=== PATIENT | female | born 1960 | race Caucasian/White ===

== ENCOUNTER 2019-08-14 13:15 | Day surgery (SDC) | payer BC ==
[2019-08-14] VITALS (13 sets, daily range): BP systolic 115–142; BP diastolic 52–98
[~2019-08-14] VITALS: Ht 165.1 cm; Wt 106.2 kg
[~2019-08-14 13:15] MED LIST: METO50TA17 PO; TRAM50TA2 PO
[2019-08-14] MEDS ORDERED: MIDAZolam 1mg/ml 10ml vial IV ONE (13:45)
[2019-08-14] MEDS ORDERED: fentaNYL/PF 50MCG/1 ML 2ML syringe IV ONE (13:45)
[2019-08-14] MEDS ORDERED: normal saline 1000ml 1,000 ML IV SCH (13:45)
[2019-08-14] MEDS ORDERED: VALA100031 PO (13:54)
[2019-08-14] MEDS ORDERED: IBUP-2417 PO (13:54)
[2019-08-14] MEDS ORDERED: RIVA20TA PO (13:54)
[2019-08-14] MEDS ORDERED: DILT-88 PO (13:54)
== END 2019-08-14 18:10 | disposition home or self-care (01) ==
LOC: SSTAY O 13:15
PROVIDERS: ATTEND Internal Medicine Interventional Cardiology
DX: I48.19 Other persistent atrial fibrillation (principal); I49.9 Cardiac arrhythmia, unspecified; Z72.0 Tobacco use; E66.9 Obesity, unspecified
CPT/HCPCS: 92960; J2250; J3010; J7030